=== PATIENT | male | born 1945 | race Two or more races ===

== ENCOUNTER 2019-01-25 17:03 | Emergency (ER) | payer SELFPAY ==
[~2019-01-25] VITALS: Ht 177.8 cm; Wt 74.8 kg
[2019-01-25 17:15] VITALS: BP 162/76
[2019-01-25] MEDS ORDERED: LIDOCAINE 1% HCL (LOCAL ANESTH.) INJ 20ML MDV IJ ONE (19:00)
== END 2019-01-25 19:40 | disposition home or self-care (01) ==
LOC: ER 17:03
DX: S01.511A Laceration without foreign body of lip, initial encounter (principal); S63.501A Unspecified sprain of right wrist, initial encounter; W01.0XXA Fall on same level from slipping, tripping and stumbling without subsequent striking against object, initial encounter; Y93.89 Activity, other specified; Y99.8 Other external cause status; Y92.89 Other specified places as the place of occurrence of the external cause
CPT/HCPCS: 12011; 73110; 99283; J2001